=== PATIENT | male | born 1935 | race Caucasian/White ===

== ENCOUNTER 2021-01-30 05:35 | Outpatient (REF) | payer MEDICARE, SELFPAY ==
[2021-01-30 07:16] LABS: MANUAL DIFF FLAG NO
[2021-01-30 07:18] LABS: Basophils Percent Auto 0.5 % (0-2); Eosinophils Absolute Auto 0.2 X10*3/uL (0.0-0.4); Eosinophils Percent Auto 2.5 % (0-4); Hematocrit 34.5 % (42-52); Hemoglobin 11.5 g/dl (14.0-18.0); Imm Gran Abs Auto 0.02 X10*3/uL (0.00-0.03); Imm Gran Pct Auto 0.3 % (0.0-0.4); Lymphocytes Absolute Auto 1.7 X10*3/uL (1.2-4.9); Lymphocytes Percent Auto 28.8 % (20-40); Mean Corpuscular HGB Conc 33.3 g/dl (31.0-36.0); Mean Corpuscular Hemoglobin 32.4 pg (27.0-33.0); Mean Corpuscular Volume 97.2 fL (80-98); Mean Platelet Volume 9.7 fL (9.4-12.4); Monocytes Absolute Auto 0.7 X10*3/uL (0.1-1.2); Monocytes Percent Auto 11.9 % (2-11); Neutrophils Absolute Auto 3.4 X10*3/uL (2.0-8.3); Platelet Count 136 X10*3/uL (160-400); Red Blood Count 3.55 X10*6/uL (4.60-5.80); Red Cell Distribution Width 12.5 % (11.0-16.0)
[2021-01-30 07:39] LABS: Alanine Aminotransferase 11 U/L (0-40); Albumin Level 3.3 g/dL (3.5-5.0); Alkaline Phosphatase 100 U/L (39-117); Anion Gap 12 (12-20); Aspartate Amino Transferase 15 U/L (5-37); Bilirubin Total 0.8 mg/dL (0.0-1.0); Blood Urea Nitrogen 14 mg/dL (9-16); Calcium 7.9 mg/dL (8.4-10.2); Carbon Dioxide 32 mmol/L (22-29); Chloride 102 mmol/L (96-108); Cholesterol 103 mg/dL; Estimated Glomerular Filt Rate > 60; Glucose Fasting 91 mg/dL (60-99); HDL Cholesterol 41 mg/dL; LDL Cholesterol Calculated 49 mg/dl; Potassium 3.8 mmol/L (3.3-5.1); Sodium 142 mmol/L (135-145); Total Protein 5.3 g/dL (6.5-8.0); Triglycerides 66 mg/dL
[2021-01-30 08:22] LABS: Thyroid Stimulating Hormone 1.17 uIU/mL (0.32-4.0)
[2021-01-30 10:32] LABS: Folate > 20.0 ng/mL (> or = 4.0); Vitamin B12 725 pg/mL (200-900)
== END 2021-01-30 05:36 | disposition home or self-care (01) ==
LOC: HO.HSH2W 05:35
PROVIDERS: Visit Provider Internal Medicine
DX: Z12.5 Encounter for screening for malignant neoplasm of prostate (principal); C61 Malignant neoplasm of prostate; E78.5 Hyperlipidemia, unspecified
CPT/HCPCS: 36415; 80053; 80061; 82607; 82746; 84153; 84443; 85025

== ENCOUNTER 2021-05-04 05:49 | Outpatient (REF) | payer MEDICARE, SELFPAY ==
[2021-05-04 07:07] LABS: Anion Gap 9 (12-20); Blood Urea Nitrogen 15 mg/dL (9-16); Calcium 8.7 mg/dL (8.4-10.2); Carbon Dioxide 30 mmol/L (22-29); Chloride 106 mmol/L (96-108); Estimated Glomerular Filt Rate > 60; Glucose Random 97 mg/dL (60-115); Sodium 141 mmol/L (135-145)
== END 2021-05-04 05:50 | disposition home or self-care (01) ==
LOC: HO.HSH4E 05:49
PROVIDERS: Visit Provider Internal Medicine Endocrinology, Diabetes & Metabolism
DX: R60.0 Localized edema (principal); R63.5 Abnormal weight gain
CPT/HCPCS: 36415; 80048; 83735

== ENCOUNTER 2021-05-06 05:33 | Outpatient (REF) | payer MEDICARE, SELFPAY ==
[2021-05-07 17:42] LABS: NT-proBNP 199 pg/mL
== END 2021-05-06 05:34 | disposition home or self-care (01) ==
LOC: HO.HSH4E 05:33
PROVIDERS: Visit Provider Internal Medicine Endocrinology, Diabetes & Metabolism
DX: R60.0 Localized edema (principal); R06.2 Wheezing
CPT/HCPCS: 36415; 83880

== ENCOUNTER 2021-05-08 06:01 | Outpatient (REF) | payer MEDICARE, SELFPAY ==
[2021-05-08 08:55] LABS: Anion Gap 8 (12-20); Blood Urea Nitrogen 19 mg/dL (9-16); Carbon Dioxide 32 mmol/L (22-29); Chloride 104 mmol/L (96-108); Estimated Glomerular Filt Rate > 60; Potassium 3.8 mmol/L (3.3-5.1); Sodium 140 mmol/L (135-145)
== END 2021-05-08 06:02 | disposition home or self-care (01) ==
LOC: HO.HSH4E 06:01
PROVIDERS: Visit Provider Internal Medicine Endocrinology, Diabetes & Metabolism
DX: I50.9 Heart failure, unspecified (principal)
CPT/HCPCS: 36415; 80051; 82565; 84520

== ENCOUNTER 2021-05-22 | Outpatient (REF) | payer MEDICARE, SELFPAY ==
[2021-05-22 09:05] LABS: Albumin Level 3.2 g/dL (3.5-5.0); Anion Gap 13 (12-20); Blood Urea Nitrogen 16 mg/dL (9-16); Carbon Dioxide 27 mmol/L (22-29); Chloride 105 mmol/L (96-108); Estimated Glomerular Filt Rate > 60; Potassium 3.9 mmol/L (3.3-5.1); Sodium 141 mmol/L (135-145)
== END 2021-05-22 00:01 | disposition home or self-care (01) ==
LOC: HO.HSH4E
PROVIDERS: Visit Provider Internal Medicine Endocrinology, Diabetes & Metabolism
DX: Z13.89 Encounter for screening for other disorder (principal)
CPT/HCPCS: 36415; 80051; 82040; 82565; 84134; 84520

== ENCOUNTER 2021-05-24 00:04 | Outpatient (REF) | payer MEDICARE, SELFPAY ==
[2021-05-24 00:15] LABS: Appearance Urine CLEAR; Color Urine YELLOW; Glucose Urine UA NEG (NEG); Leukocyte Esterase Urine NEG (NEG); Nitrite Urine NEG (NEG); PH 5.5 (5.0-8.0); Specific Gravity - Urine 1.015 (1.005-1.025); UACC Culture Trigger NO; Urine Blood NEG (NEG); Urine Ketones NEG (NEG); Urine Protein NEG (NEG-TRACE)
== END 2021-05-24 00:05 | disposition home or self-care (01) ==
LOC: HO.HSH4E 00:04
PROVIDERS: Visit Provider Internal Medicine Endocrinology, Diabetes & Metabolism
DX: E77.8 Other disorders of glycoprotein metabolism (principal)
CPT/HCPCS: 81003

== ENCOUNTER 2021-07-24 05:00 | Outpatient (REF) | payer MEDICARE, SELFPAY ==
[2021-07-24 09:49] LABS: Prostate Specific Antigen Scr 127.96 ng/mL (<0.05-4.0)
[2021-07-24 13:16] LABS: Alkaline Phosphatase 95 U/L (39-117)
== END 2021-07-24 05:01 ==
LOC: HO.HSH4E 05:00
PROVIDERS: Visit Provider Internal Medicine Endocrinology, Diabetes & Metabolism
DX: Z12.5 Encounter for screening for malignant neoplasm of prostate (principal); C61 Malignant neoplasm of prostate
CPT/HCPCS: 36415; 84075; 84153

== ENCOUNTER 2021-08-11 06:45 | Outpatient (REF) | payer MEDICARE, SELFPAY ==
[2021-08-11 08:17] LABS: Albumin Level 3.1 g/dL (3.5-5.0); Anion Gap 10 (12-20); Blood Urea Nitrogen 13 mg/dL (9-16); Carbon Dioxide 29 mmol/L (22-29); Chloride 104 mmol/L (96-108); Estimated Glomerular Filt Rate > 60; Potassium 3.7 mmol/L (3.3-5.1); Sodium 139 mmol/L (135-145)
== END 2021-08-11 06:46 | disposition home or self-care (01) ==
LOC: HO.HSH4E 06:45
PROVIDERS: Visit Provider Internal Medicine Endocrinology, Diabetes & Metabolism
DX: I10 Essential (primary) hypertension (principal)
CPT/HCPCS: 36415; 80051; 82040; 82565; 84520

== ENCOUNTER 2021-09-15 10:36 | Outpatient (REF) | payer MEDICARE, SELFPAY ==
[2021-09-15 08:55] LABS: Prostate Specific Antigen 35.02 ng/mL (<0.05-4.0)
== END 2021-09-15 10:37 | disposition home or self-care (01) ==
LOC: HO.HSH4E 10:36
PROVIDERS: Visit Provider Internal Medicine Endocrinology, Diabetes & Metabolism
DX: Z12.5 Encounter for screening for malignant neoplasm of prostate (principal); C61 Malignant neoplasm of prostate
CPT/HCPCS: 36415; 84153

== ENCOUNTER 2022-01-22 05:42 | Outpatient (REF) | payer MEDICARE, SELFPAY ==
[2022-01-22 07:46] LABS: MANUAL DIFF FLAG NO
[2022-01-22 07:52] LABS: Basophils Percent Auto 0.4 % (0-2); Eosinophils Absolute Auto 0.2 X10*3/uL (0.0-0.4); Eosinophils Percent Auto 4.6 % (0-4); Hematocrit 31.7 % (42.0-52.0); Hemoglobin 10.6 g/dl (14.0-18.0); Imm Gran Abs Auto 0.01 X10*3/uL (0.00-0.03); Imm Gran Pct Auto 0.2 % (0.0-0.4); Lymphocytes Absolute Auto 1.5 X10*3/uL (1.2-4.9); Lymphocytes Percent Auto 33.4 % (20-40); Mean Corpuscular HGB Conc 33.4 g/dl (31.0-36.0); Mean Corpuscular Hemoglobin 31.6 pg (27.0-33.0); Mean Corpuscular Volume 94.6 fL (80.0-98.0); Mean Platelet Volume 9.8 fL (9.4-12.4); Monocytes Absolute Auto 0.5 X10*3/uL (0.1-1.2); Monocytes Percent Auto 11.9 % (2-11); Neutrophils Absolute Auto 2.3 x10*3/uL (2.0-8.3); Neutrophils Percent Auto 49.5 % (45-73); Platelet Count 135 X10*3/uL (160-400); Red Blood Count 3.35 X10*6/uL (4.60-5.80); Red Cell Distribution Width 12.6 % (11.0-16.0); White Blood Count 4.6 X10*3/uL (4.8-10.8)
== END 2022-01-22 05:43 | disposition home or self-care (01) ==
LOC: HO.HSH4E 05:42
PROVIDERS: Visit Provider Internal Medicine Endocrinology, Diabetes & Metabolism
DX: I10 Essential (primary) hypertension (principal); E78.00 Pure hypercholesterolemia, unspecified
CPT/HCPCS: 36415; 85025

== ENCOUNTER 2022-01-28 05:43 | Outpatient (REF) | payer MEDICARE, SELFPAY ==
[2022-01-28 07:51] LABS: MANUAL DIFF FLAG NO
[2022-01-28 08:01] LABS: Basophils Percent Auto 0.4 % (0-2); Eosinophils Absolute Auto 0.2 X10*3/uL (0.0-0.4); Eosinophils Percent Auto 4.5 % (0-4); Hematocrit 31.1 % (42.0-52.0); Hemoglobin 10.4 g/dl (14.0-18.0); Lymphocytes Absolute Auto 1.6 X10*3/uL (1.2-4.9); Lymphocytes Percent Auto 35.3 % (20-40); Mean Corpuscular HGB Conc 33.4 g/dl (31.0-36.0); Mean Corpuscular Hemoglobin 31.8 pg (27.0-33.0); Mean Corpuscular Volume 95.1 fL (80.0-98.0); Mean Platelet Volume 10.1 fL (9.4-12.4); Monocytes Absolute Auto 0.5 X10*3/uL (0.1-1.2); Monocytes Percent Auto 11.3 % (2-11); Neutrophils Absolute Auto 2.2 x10*3/uL (2.0-8.3); Neutrophils Percent Auto 48.5 % (45-73); Platelet Count 134 X10*3/uL (160-400); Red Blood Count 3.27 X10*6/uL (4.60-5.80); Red Cell Distribution Width 12.7 % (11.0-16.0); White Blood Count 4.6 X10*3/uL (4.8-10.8)
[2022-01-28 08:23] LABS: Alanine Aminotransferase 10 U/L (0-40); Albumin Level 2.9 g/dL (3.5-5.0); Alkaline Phosphatase 93 U/L (39-117); Anion Gap 11 (12-20); Aspartate Amino Transferase 13 U/L (5-37); Bilirubin Total 0.7 mg/dL (0.0-1.0); Blood Urea Nitrogen 13 mg/dL (9-16); Calcium 8.4 mg/dL (8.4-10.2); Carbon Dioxide 31 mmol/L (22-29); Chloride 102 mmol/L (96-108); Estimated Glomerular Filt Rate > 60; Glucose Random 98 mg/dL (60-115); Potassium 3.4 mmol/L (3.3-5.1); Sodium 141 mmol/L (135-145)
== END 2022-01-28 05:44 | disposition home or self-care (01) ==
LOC: HO.HSH4E 05:43
PROVIDERS: Visit Provider Internal Medicine Endocrinology, Diabetes & Metabolism
DX: Z12.5 Encounter for screening for malignant neoplasm of prostate (principal); I10 Essential (primary) hypertension; E78.00 Pure hypercholesterolemia, unspecified
CPT/HCPCS: 36415; 80053; 84153; 85025

== ENCOUNTER 2022-02-02 08:28 | Outpatient (REF) | payer MEDICARE, SELFPAY ==
[2022-02-02 09:37] LABS: Prostate Specific Antigen 20.08 ng/mL (<0.05-4.0)
[2022-02-06 19:36] LABS: Testosterone, Total 14 ng/dL (250-1100)
== END 2022-02-02 08:29 | disposition home or self-care (01) ==
LOC: HO.HSH4E 08:28
PROVIDERS: Visit Provider Internal Medicine Endocrinology, Diabetes & Metabolism
DX: C61 Malignant neoplasm of prostate (principal); Z12.5 Encounter for screening for malignant neoplasm of prostate
CPT/HCPCS: 36415; 84153; 84403

== ENCOUNTER 2022-03-30 05:31 | Outpatient (REF) | payer MEDICARE, SELFPAY ==
[2022-03-30 08:08] LABS: Cholesterol 102 mg/dL; HDL Cholesterol 35 mg/dL; LDL Cholesterol Calculated 53 mg/dl; Triglycerides 70 mg/dL
== END 2022-03-30 05:32 | disposition home or self-care (01) ==
LOC: HO.HSH4E 05:31
PROVIDERS: Visit Provider Internal Medicine
DX: I11.0 Hypertensive heart disease with heart failure (principal); I50.9 Heart failure, unspecified; E78.5 Hyperlipidemia, unspecified
CPT/HCPCS: 36415; 80061

== ENCOUNTER 2022-04-24 11:39 | Outpatient (REF) | payer MEDICARE, SELFPAY ==
[2022-04-24 12:10] LABS: MANUAL DIFF FLAG NO
[2022-04-24 12:21] LABS: Basophils Percent Auto 0.3 % (0-2); Hematocrit 32.8 % (42.0-52.0); Hemoglobin 10.9 g/dl (14.0-18.0); Imm Gran Abs Auto 0.01 X10*3/uL (0.00-0.03); Imm Gran Pct Auto 0.3 % (0.0-0.4); Lymphocytes Absolute Auto 0.4 X10*3/uL (1.2-4.9); Lymphocytes Percent Auto 11.1 % (20-40); Mean Corpuscular HGB Conc 33.2 g/dl (31.0-36.0); Mean Corpuscular Hemoglobin 31.1 pg (27.0-33.0); Mean Corpuscular Volume 93.4 fL (80.0-98.0); Mean Platelet Volume 9.6 fL (9.4-12.4); Monocytes Absolute Auto 0.4 X10*3/uL (0.1-1.2); Monocytes Percent Auto 11.3 % (2-11); Platelet Count 160 X10*3/uL (160-400); Red Blood Count 3.51 X10*6/uL (4.60-5.80); White Blood Count 3.9 X10*3/uL (4.8-10.8)
[2022-04-24 13:04] LABS: Alanine Aminotransferase 11 U/L (0-40); Albumin Level 3.3 g/dL (3.5-5.0); Alkaline Phosphatase 97 U/L (39-117); Anion Gap 14 (12-20); Aspartate Amino Transferase 14 U/L (5-37); Bilirubin Total 0.8 mg/dL (0.0-1.0); Blood Urea Nitrogen 13 mg/dL (9-16); Calcium 8.4 mg/dL (8.4-10.2); Carbon Dioxide 29 mmol/L (22-29); Chloride 99 mmol/L (96-108); Estimated Glomerular Filt Rate > 60; Glucose Random 132 mg/dL (60-115); Potassium 3.9 mmol/L (3.3-5.1); Sodium 138 mmol/L (135-145); Total Protein 5.5 g/dL (6.5-8.0)
== END 2022-04-24 11:40 | disposition home or self-care (01) ==
LOC: HO.HSH4E 11:39
PROVIDERS: Visit Provider Internal Medicine Endocrinology, Diabetes & Metabolism
DX: K29.70 Gastritis, unspecified, without bleeding (principal)
CPT/HCPCS: 36415; 80053; 85025

== ENCOUNTER 2022-07-31 06:02 | Outpatient (REF) | payer MEDICARE, SELFPAY ==
[2022-07-31 13:39] LABS: Prostate Specific Antigen 19.12 ng/mL (<0.05-4.0)
== END 2022-07-31 06:03 | disposition home or self-care (01) ==
LOC: HO.HSH4E 06:02
PROVIDERS: Visit Provider Internal Medicine Endocrinology, Diabetes & Metabolism
DX: Z12.5 Encounter for screening for malignant neoplasm of prostate (principal); C61 Malignant neoplasm of prostate
CPT/HCPCS: 36415; 84153

== ENCOUNTER 2023-02-05 05:53 | Outpatient (REF) | payer MEDICARE, SELFPAY ==
[2023-02-05 10:06] LABS: Prostate Specific Antigen 13.85 ng/mL (<0.05-4.0)
[2023-02-11 12:12] LABS: Testosterone, Total 13 ng/dL (250-1100)
== END 2023-02-05 05:54 | disposition home or self-care (01) ==
LOC: HO.HSH4E 05:53
PROVIDERS: Visit Provider Internal Medicine Endocrinology, Diabetes & Metabolism
DX: Z12.5 Encounter for screening for malignant neoplasm of prostate (principal); R97.20 Elevated prostate specific antigen [PSA]
CPT/HCPCS: 36415; 84153; 84403

== ENCOUNTER 2023-04-23 05:52 | Outpatient (REF) | payer MEDICARE, SELFPAY ==
[2023-04-23 06:19] LABS: Anion Gap 11 (12-20); Blood Urea Nitrogen 8 mg/dL (9-16); Calcium 8.3 mg/dL (8.4-10.2); Carbon Dioxide 30 mmol/L (22-29); Chloride 102 mmol/L (96-108); Estimated Glomerular Filt Rate > 60; Glucose Random 98 mg/dL (60-115); Potassium 3.4 mmol/L (3.3-5.1); Sodium 140 mmol/L (135-145)
== END 2023-04-23 05:53 | disposition home or self-care (01) ==
LOC: HO.HSH4E 05:52
PROVIDERS: Visit Provider Internal Medicine Endocrinology, Diabetes & Metabolism
DX: I10 Essential (primary) hypertension (principal); I63.9 Cerebral infarction, unspecified
CPT/HCPCS: 36415; 80048

== ENCOUNTER 2023-07-28 06:30 | Outpatient (REF) | payer MEDICARE, SELFPAY ==
[2023-07-28 07:25] LABS: Prostate Specific Antigen 9.51 ng/mL (<0.05-4.0)
[2023-08-02 12:44] LABS: Testosterone, Total 7 ng/dL (250-1100)
== END 2023-07-28 06:31 | disposition home or self-care (01) ==
LOC: HO.HSH4E 06:30
PROVIDERS: Visit Provider Internal Medicine Endocrinology, Diabetes & Metabolism
DX: Z12.5 Encounter for screening for malignant neoplasm of prostate (principal); C61 Malignant neoplasm of prostate
CPT/HCPCS: 36415; 84153; 84403

== ENCOUNTER 2024-02-03 07:23 | Outpatient (REF) | payer MEDICARE, SELFPAY ==
[2024-02-08 15:58] LABS: Testosterone, Total 8 ng/dL (250-1100)
== END 2024-02-03 07:24 | disposition home or self-care (01) ==
LOC: HO.HSH4E 07:23
PROVIDERS: Visit Provider Internal Medicine Endocrinology, Diabetes & Metabolism
DX: C61 Malignant neoplasm of prostate (principal); Z12.5 Encounter for screening for malignant neoplasm of prostate
CPT/HCPCS: 36415; 84153; 84403

== ENCOUNTER 2024-05-25 05:28 | Outpatient (REF) | payer MEDICARE, SELFPAY ==
[2024-05-25 06:32] LABS: MANUAL DIFF FLAG NO
[2024-05-25 07:00] LABS: Anion Gap 12 (12-20)
[2024-05-25 07:04] LABS: Basophils Percent Auto 0.6 % (0-2); Eosinophils Absolute Auto 0.2 X10*3/uL (0.0-0.4); Eosinophils Percent Auto 4.5 % (0-4); Hematocrit 29.8 % (42.0-52.0); Hemoglobin 9.9 g/dl (14.0-18.0); Imm Gran Abs Auto 0.01 X10*3/uL (0.00-0.03); Imm Gran Pct Auto 0.2 % (0.0-0.4); Lymphocytes Percent Auto 39.5 % (20-40); Mean Corpuscular HGB Conc 33.2 g/dl (31.0-36.0); Mean Corpuscular Hemoglobin 29.9 pg (27.0-33.0); Mean Platelet Volume 10.1 fL (9.4-12.4); Monocytes Absolute Auto 0.6 X10*3/uL (0.1-1.2); Monocytes Percent Auto 12.1 % (2-11); Neutrophils Absolute Auto 2.2 x10*3/uL (2.0-8.3); Neutrophils Percent Auto 43.1 % (45-73); Platelet Count 167 X10*3/uL (160-400); Red Blood Count 3.31 X10*6/uL (4.60-5.80); Red Cell Distribution Width 17.6 % (11.0-16.0); White Blood Count 5.1 X10*3/uL (4.8-10.8)
[2024-05-25 07:35] LABS: Alanine Aminotransferase 14 U/L (0-40); Alkaline Phosphatase 96 U/L (39-117); Aspartate Amino Transferase 19 U/L (5-37); Blood Urea Nitrogen 12 mg/dL (9-16); Calcium 8.6 mg/dL (8.4-10.2); Carbon Dioxide 28 mmol/L (22-29); Chloride 106 mmol/L (96-108); Cholesterol 93 mg/dL (<200); Estimated Glomerular Filt Rate > 60; Glucose Fasting 95 mg/dL (60-99); HDL Cholesterol 35 mg/dL (>40); LDL Cholesterol Calculated 41 mg/dL (<100); Potassium 3.9 mmol/L (3.3-5.1); Sodium 140 mmol/L (135-145); Total Protein 5.4 g/dL (6.5-8.0); Triglycerides 87 mg/dL (<150)
[2024-05-25 08:01] LABS: Bilirubin Total 0.5 mg/dL (0.0-1.0)
== END 2024-05-25 05:29 | disposition home or self-care (01) ==
LOC: HO.HSH4E 05:28
PROVIDERS: Visit Provider Internal Medicine Endocrinology, Diabetes & Metabolism
DX: I10 Essential (primary) hypertension (principal); C61 Malignant neoplasm of prostate; I63.9 Cerebral infarction, unspecified
CPT/HCPCS: 36415; 80053; 80061; 85025

== ENCOUNTER 2024-06-26 07:42 | Outpatient (REF) | payer MEDICARE, SELFPAY ==
[2024-06-26 07:47] LABS: MANUAL DIFF FLAG NO
[2024-06-26 08:24] LABS: Basophils Percent Auto 0.3 % (0-2); Eosinophils Absolute Auto 0.2 X10*3/uL (0.0-0.4); Eosinophils Percent Auto 3.4 % (0-4); Hematocrit 30.4 % (42.0-52.0); Hemoglobin 9.9 g/dl (14.0-18.0); Imm Gran Abs Auto 0.01 X10*3/uL (0.00-0.03); Imm Gran Pct Auto 0.2 % (0.0-0.4); Lymphocytes Absolute Auto 1.8 X10*3/uL (1.2-4.9); Lymphocytes Percent Auto 30.9 % (20-40); Mean Corpuscular HGB Conc 32.6 g/dl (31.0-36.0); Mean Corpuscular Hemoglobin 29.8 pg (27.0-33.0); Mean Corpuscular Volume 91.6 fL (80.0-98.0); Mean Platelet Volume 9.9 fL (9.4-12.4); Monocytes Absolute Auto 0.6 X10*3/uL (0.1-1.2); Monocytes Percent Auto 9.9 % (2-11); Neutrophils Absolute Auto 3.2 x10*3/uL (2.0-8.3); Neutrophils Percent Auto 55.3 % (45-73); Platelet Count 169 X10*3/uL (160-400); Red Blood Count 3.32 X10*6/uL (4.60-5.80); Red Cell Distribution Width 16.5 % (11.0-16.0); White Blood Count 5.9 X10*3/uL (4.8-10.8)
[2024-06-26 09:01] LABS: Ferritin 25 ng/mL (20-250)
[2024-06-26 09:08] LABS: Vitamin B12 886 pg/mL (200-900)
== END 2024-06-26 07:43 | disposition home or self-care (01) ==
LOC: HO.HSH4E 07:42
PROVIDERS: Visit Provider Internal Medicine Endocrinology, Diabetes & Metabolism
DX: D64.9 Anemia, unspecified (principal)
CPT/HCPCS: 36415; 82607; 82728; 85025

== ENCOUNTER 2024-08-08 05:55 | Outpatient (REF) | payer MEDICARE, SELFPAY ==
[2024-08-08 07:01] LABS: Anion Gap 9 (12-20); Blood Urea Nitrogen 12 mg/dL (9-16); Calcium 8.7 mg/dL (8.4-10.2); Carbon Dioxide 29 mmol/L (22-29); Chloride 106 mmol/L (96-108); Estimated Glomerular Filt Rate > 60; Glucose Random 95 mg/dL (60-115); Potassium 3.4 mmol/L (3.3-5.1); Sodium 141 mmol/L (135-145)
== END 2024-08-08 05:56 | disposition home or self-care (01) ==
LOC: HO.HSH4E 05:55
PROVIDERS: Visit Provider Internal Medicine Endocrinology, Diabetes & Metabolism
DX: I10 Essential (primary) hypertension (principal); K21.9 Gastro-esophageal reflux disease without esophagitis; D64.9 Anemia, unspecified
CPT/HCPCS: 36415; 80048

== ENCOUNTER 2024-08-21 06:20 | Outpatient (REF) | payer MEDICARE, SELFPAY ==
[2024-08-21 07:09] LABS: Anion Gap 13 (12-20); Blood Urea Nitrogen 10 mg/dL (9-16); Calcium 8.8 mg/dL (8.4-10.2); Carbon Dioxide 26 mmol/L (22-29); Chloride 105 mmol/L (96-108); Estimated Glomerular Filt Rate > 60; Glucose Random 101 mg/dL (60-115); Potassium 3.1 mmol/L (3.3-5.1); Sodium 141 mmol/L (135-145)
[2024-08-21 07:32] LABS: PSA,Total (Free>4and<10) 13.52 ng/mL (0.00-4.00)
[2024-08-25 18:19] LABS: Testosterone, Free 0.8 pg/mL (30.0-135.0); Testosterone, Total 9 ng/dL (250-1100)
== END 2024-08-21 06:21 | disposition home or self-care (01) ==
LOC: HO.HSH4E 06:20
PROVIDERS: Visit Provider Internal Medicine Endocrinology, Diabetes & Metabolism
DX: Z12.5 Encounter for screening for malignant neoplasm of prostate (principal); E87.6 Hypokalemia; R60.0 Localized edema
CPT/HCPCS: 36415; 80048; 84153; 84402; 84403

== ENCOUNTER 2025-01-04 06:48 | Outpatient (REF) | payer MEDICARE, SELFPAY ==
--- OUTSIDE RECORDS SUMMARY | 2025-01-04 06:51 | XMS_ITS | Encounter Summary ---
Author Organization [employer] Address [address] [facility] [address] [place] [address] Care Team Providers Care Rn Lpn Lvn Name Role Phone Unavailable Primary Care Provider Unavailabl e Encounter Details Date Type Department Care Team (Late st Contact Info) Description 11/25/2023 Abstract [facility] [address] [place], [place] [phone] Abisai Gutierrez, DMD [address] [place], [place] [phone] Social History Tobacco Use Types Packs/Day Years Used Date Smoking Tobacco: Unknown Sex and Gender Information Value Date Recorded Sex Assigned at Male 09/14/2022 10:31 AM EDT Legal Sex Male 10:31 AM EDT Gender Identity Male 09/14/2022 10:31 AM EDT Sexual Orientation Straight 09/14/2022 10 :31 AM EDT documented as of this encounter Plan of Treatment Not on file documented as of this encounter Visit Diagnoses Not on filedocumented in this encounter
--- OUTSIDE RECORDS SUMMARY | 2025-01-04 06:51 | XMS_ITS | Encounter Summary ---
Author Organization [employer] Address [address] [facility] [address] [place] [address] Care Team Providers Care Radial Drill Operator Name Role Phone Unavailable Primary Care Provider Unavailabl e Encounter Details Date Type Department Care Team (Late st Contact Info) Description 01/14/2023 Abstract [facility] [address] [place], [place] [phone] Abisai Gutierrez, [place] [address] [place], [place] [phone] Social History Tobacco Use Types Packs/Day Years Used Date Smoking Tobacco: Never Assessed Sex and Gender Information Value Date Recorded Sex Assigned at Male 09/14/2022 10:31 AM EDT Legal Sex Male 10:31 AM EDT Gender Identity Male 09/14/2022 10:31 AM EDT Sexual Orientation Straight 09/14/2022 10 :31 AM EDT COVID-19 Exposure Response Date Recorded In the last 10 days, have yo u been in contact with someone who was confirmed or suspected to have Coronavirus/COVID-19? No / Unsure 12/22/2022 10:57 AM EST documented as of this encounter Plan of Treatment Not on file documented as of this encounter Visit Diagnoses Not on filedocumented in this encounter
--- OUTSIDE RECORDS SUMMARY | 2025-01-04 06:51 | XMS_ITS | Clinical Summary ---
Author Organization [employer] Address [address] [place] [address] [address] [place] [address] Care Team Providers Care Decorating Consultant Name Role Phone Unavailable Primary Care Provider Unavailabl e Allergies Active Allergy Reactions Criticality Noted Date Comments Tuberculin Purified Protein Derivative 02/24/2023 Medications aspirin 81 MG EC tablet Take 1 tablet by mouth in the morning. Active atorvastatin (Lipitor) 40 MG tablet 3 Active cholecalciferol (Vitamin D-3) 25 MCG (1000 UT) capsule Place into mouth between cheek and gum at bed time. Active furosemide (Lasix) 20 MG tablet Take 1 tablet by mouth at bed time. Active guaiFENesin (Cough Syrup) 100 MG/5ML liquid Take 10 mL by mouth every 4 (four) hours. Active tamsulosin (Flomax) 0.4 MG 24 hr capsule 3 Active sertraline (Zoloft) 50 MG tablet 3 Active raNITIdine (Zantac) 150 MG tablet take 1 tablet by oral route 2 times every day Active Calcium Polycarbophil (fiber) 625 MG tablet Active Cyanocobalamin 1000 MCG capsule Act [place] clopidogrel (Plavix) 75 MG tablet Take 1 tablet by mouth at bed time. Active folic acid (Folvite) 1 MG tablet Take 1 tablet by mouth at bed time. Active levalbuterol (Xopenex) 45 MCG/ACT inhaler Inhale 2 puffs every 6 (six) hours. Active loratadine (Claritin) 10 MG tablet Take 1 tablet by mouth at bed time. Active magnesium hydroxide (Milk of Magnesia) 400 MG/5ML suspension Take 30 mL by mouth at bed time. Active polyethylene glycol, PEG, 3350 (Glycolax) 17 GM/SCOOP powder take (17G) by oral route every day mixed with 8 oz. water, juice, soda, coffee or tea Active sertraline (Zoloft) 25 MG tablet Take 1 tablet by mouth at bed time. Active prochlorperazine (Compazine) 25 MG suppository Insert 1 suppository into the rectum every 12 (twelve) hours. Active Social History Tobacco Use Types Packs/Day Years Used Date Smoking Tobacco: Unknown Tobacco Cessation:Counseling Given: Not Answered Sex and Gender Information Value Date Recorded Sex Assigned at Male 09/14/2022 10:31 AM EDT Legal Sex Male 10:31 AM EDT Gender Identity Male 09/14/2022 10:31 AM EDT Sexual Orientation Straight 09/14/2022 10 :31 AM EDT Plan of Treatment Health Maintenance Due Date Last Done Comments Anal Pap 1935 Dental Oral Exam 1935 Dental Prophylaxis 1935 Dental X-Ray: Bitewings 1935 Dental X-Ray: Full Mouth 1935 Depression Screening 1935 Lipid Panel 1935 SDOH Screening 1935 Alcohol/Substance Use Screening 1947 DTaP/Tdap/Td Vaccines (1 - Tdap) 1954 Hepatitis A Vaccines (1 of 2 - Risk 2-dose series) 1954 Pneumococcal Vaccine: 50+ Ye ars (1 of 1 - PCV) 1985 Zoster Vaccines (1 of 2) 1985 Hepatitis B Vaccines (1 of 3 - Risk 3-dose series) 1995 RSV Patients and Pa tients Aged 60 years or older (1 - 1-dose 75+ series) 2010 COVID-19 Vaccine (2023-2 5 season) 2024 Influenza Vaccine (#1) 2024 Tobacco Screening 11/24/2024 11/24/2023 HIB Vaccines Aged Out No longer eligi ble based on patient's age to complete this topic HPV Vaccines Aged Out No longer eligi ble based on patient's age to complete this topic IPV Vaccines Aged Out No longer eligi ble based on patient's age to complete this topic Meningococcal Vaccine Aged Out No cecy moncho eligible based on patient's age to complete this topic RSV under 20 months Aged Out No longe r eligible based on patient's age to complete this topic Rotavirus Vaccines Aged Out No longer eligible based on patient's age to complete this topic Advance Directives Documents on File Type Date Recorded 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
--- OUTSIDE RECORDS SUMMARY | 2025-01-04 06:51 | XMS_ITS | Encounter Summary ---
Author Organization [employer] Address [address] [place] [address] [address] [place] [address] Care Team Providers Care Flotation Operator Name Role Phone Unavailable Primary Care Provider Unavailabl e Encounter Details Date Type Department Care Team (Latest Contact Info) Description 02/10/2019 Abstract [facility], Provider, DDS Social History Tobacco Use Types Packs/Day Years [...]
--- OUTSIDE RECORDS SUMMARY | 2025-01-04 06:51 | XMS_ITS | Encounter Summary ---
Author Organization [employer] Address [address] [facility] [address] [place] [address] Care Team Providers Care Manager Architectural Name Role Phone Unavailable Primary Care Provider Unavailabl e Encounter Details Date Type Department Care Team (Late st Contact Info) Description 11/25/2023 Abstract [facility] [address] [place], [place] [phone] Abisai Gutierrez, DMD [address] [place], [place] [phone] Social History Tobacco Use Types Packs/Day Years [...]
--- OUTSIDE RECORDS SUMMARY | 2025-01-04 06:51 | XMS_ITS | Encounter Summary ---
Author Organization [employer] Address [address] [facility] [address] [place] [address] Care Team Providers Care Taffy Candy Maker Name Role Phone Unavailable Primary Care Provider Unavailabl e Encounter Details Date Type Department Care Team (Late st Contact Info) Description 10/25/[address] [facility] [address] [place] [address] Abisai Gutierrez, DMD [address] [place], [place] [phone] Social History Tobacco Use Types Packs/Day Years [...]
[2025-01-04 07:41] LABS: Prostate Specific Antigen 18.25 ng/mL (<0.05-4.0)
== END 2025-01-04 06:49 | disposition home or self-care (01) ==
LOC: HO.HSH4E 06:48
PROVIDERS: Visit Provider Internal Medicine Endocrinology, Diabetes & Metabolism
DX: C61 Malignant neoplasm of prostate (principal); Z12.5 Encounter for screening for malignant neoplasm of prostate
CPT/HCPCS: 36415; 84153

== ENCOUNTER 2025-02-16 07:31 | Outpatient (REF) | payer MEDICARE, SELFPAY ==
[2025-02-24 11:02] LABS: Testosterone, Free 1 pg/mL (30.0-135.0); Testosterone, Total 7 ng/dL (250-1100)
== END 2025-02-16 07:32 | disposition home or self-care (01) ==
LOC: HO.HSH4E 07:31
PROVIDERS: Visit Provider Internal Medicine Interventional Cardiology
DX: C61 Malignant neoplasm of prostate (principal)
CPT/HCPCS: 36415; 84402; 84403